=== PATIENT | male | born 1945 | race Caucasian/White ===

== ENCOUNTER 2020-04-05 09:17 | Outpatient (REF) | payer MEDICARE, SELFPAY ==
--- NOTE | 2020-04-05 09:18 | MR_ITS ---
EXAMINATION: MR LUMBAR SPINE WITHOUT AND WITH CONTRAST CLINICAL INFORMATION: Low back pain. Right lower extremity pain x5 weeks. COMPARISON: Lumbar spine MRI 02/08/2017, 02/03/2016. TECHNIQUE: Multiplanar MR imaging of the lumbar spine was performed without and with contrast. A total of 7.5 mL Gadavist was utilized for this examination. FINDINGS: There is a slight grade 1 retrolisthesis of L2 on L3 and L3 on L4. And alignment is otherwise normal. Vertebral heights are preserved. Minimal type I degenerative endplate changes at L4-L5. Mixed predominantly type II degenerative endplate changes at L2-L3. The L5 and S1 vertebral segments are chronically fused. There is loss of intervertebral disc height and T2 signal intensity at multiple levels related to disc degeneration. The tip of the conus medullaris is located at L1. No mass effect on the conus. Visualized distal cord signal intensity is normal. At L1-L2 there is a diffusely bulging disc. Advanced bilateral facet degenerative change. Mild to moderate canal stenosis. Mild mass effect on the extraforaminal segments of both L1 nerve roots. At L2-L3 there is a focal left subarticular protrusion superimposed upon a diffusely bulging disc. Bilateral facet degenerative change. Mild to moderate canal stenosis. There is subtle displacement and possible compression of left traversing L3 nerve roots. No foraminal nerve root compression. At L3-L4 there is a diffusely bulging disc. Bilateral facet degenerative change. Mild canal stenosis. Symmetric subarticular zone narrowing causes abutment of both traversing L4 nerve roots. No foraminal nerve root compression. At L4-L5 there are chronic changes of a decompressive laminectomy. There is a shallow recurrent right subarticular protrusion superimposed upon a diffusely bulging disc. Bilateral facet degenerative change. No canal stenosis. There is medial displacement and possible residual compression of the right traversing L5 nerve roots. Moderate to severe compression of the right L4 foraminal nerve root and mild mass effect on the left L4 foraminal nerve root. At L5-S1 the canal is decompressed. No mass effect on the traversing or foraminal nerve roots. Postcontrast images reveal eccentric epidural enhancement at the site of surgery with no evidence of perineural fibrosis. Limited visualization of the retroperitoneal anatomy reveals no abnormal finding. Psoas and paraspinal muscle groups are symmetric. MR/MR lumbar spine wo/w con IMPRESSION: Shallow recurrent right subarticular to foraminal protrusion at L4-L5 causes moderate to severe compression of the right L4 foraminal nerve root and medial displacement and possible compression of the right traversing L5 nerve roots. There is mild to moderate canal stenosis at levels of L1-L2 and L2-L3. Mild canal stenosis at L3-L4. Otherwise no canal compromise. Bridging bone completely fuses the L5 and S1 vertebral segments.
== END 2020-04-05 09:18 | disposition home or self-care (01) ==
LOC: HO.MRI 09:17
PROVIDERS: Visit Provider Internal Medicine
DX: M54.16 Radiculopathy, lumbar region (principal)
CPT/HCPCS: 72158; A9585